=== PATIENT | male | born 1935 | race Caucasian/White ===

== ENCOUNTER 2016-12-21 19:21 | Inpatient (IN) | payer MEDICAID, OTHER ==
[~2016-12-21] VITALS: Ht 182.9 cm; Wt 77.1 kg
--- NOTE | 2016-12-21 19:25 | NUR ---
81Y M BIB [facility] FROM [facility] DUE TO FAILURE TO THRIVE FOR DAYS NOW. NO DISTRESS NOTED. PT WITH LT SIDED WEAKNESS, HX OF CVA. ST HR 130'S. AFEBRILE. SEE V/S. ERMD AWARE OF PT'S CONDITION.
[2016-12-21 19:27] VITALS: BP 158/78
[2016-12-21] MEDS ORDERED: NACL 0.9% 1,000 ML IV ONE (19:45)
[2016-12-21] MEDS ORDERED: PROSCAR5 M1 PO (19:58)
[2016-12-21] MEDS ORDERED: ADVAIR DISKUS 21 DSK IH (19:58)
[2016-12-21] MEDS ORDERED: ULTRAM50 MG PO (19:58)
[2016-12-21] MEDS ORDERED: ASPIRIN81 M1 PO (19:58)
[2016-12-21] MEDS ORDERED: PROVENTIL2.5 MG/3 M INH (19:58)
[2016-12-21] MEDS ORDERED: TYLENOL325 M2 PO (19:58)
[2016-12-21] MEDS ORDERED: DEKAS PLUS SOF1 EACH PO (19:58)
[2016-12-21] MEDS ORDERED: ARICEPT10 MG PO (19:58)
[2016-12-21] MEDS ORDERED: LIPITOR20 MG PO (19:58)
[2016-12-21] MEDS ORDERED: ARTIFICIAL TEAR15 ML OP (19:58)
[2016-12-21] MEDS ORDERED: RESOURCE PO (19:59)
[2016-12-21] MEDS ORDERED: LEVOFLOXACIN 500 MG/D5W PREMIX 100 ML IV ONE (20:40)
[2016-12-21] MEDS ORDERED: PIPERACILLIN/TAZOBACTAM 3.375 GM in DEXTROSE 5% 50 ML IV ONE (20:40)
[2016-12-21] MEDS ORDERED: NACL 0.9% 2,250 ML IV ONE (20:40)
[2016-12-21] MEDS ORDERED: PIPERACILLIN/TAZOBACTAM 3.375 GM VIAL IV ONE (20:50)
[2016-12-21] MEDS ORDERED: INSULIN HUMAN REGULAR 100 UNITS/ML 10 ML VIAL IVP ONE (21:05)
--- NOTE | 2016-12-21 21:42 | NUR ---
Patient will be admitted to care of DR RITCHIE . Admited to TELEMETRY. Will go to room 122B. Belongings list completed. Report to CHIRAG ESTRADA.
--- NOTE | 2016-12-21 21:45 | NUR ---
Admitted from , [facility]R. with chief complaint of GENERALIZED WEAKNESS, LOSS OF APPETITE & FAILURE TO THRIVE. AN 81 YO/MALE. ALERT AWAKE ORIENTED X1. UNABLE TO SPEAK CLEARLY BUT ABLE TO FOLLOW SIMPLE COMMANDS. INITIAL ASSESSMENT DONE. NO S/S OF RESPIRATORY DISTRESS OR SOB NOTED. ON O2 @ 2L/MIN VIA NASAL CANULA. NO C/O PAIN OR ANY DISCOMFORT AT THIS TIME. SKIN IS INTACT CLEAN AND DRY AND WARM TO TOUCH. PLAN OF CARE REVIEWED TO PT BUT UNABLE TO COMPREHEND. oriented to call light, bed, phone,television, bathroom, smoking policy, visiting hours, procedures, ID bracelet on. Belongings list checked. CALL LIGHT WITHIN REACH. WILL CONTINUE TO MONITOR.
[2016-12-21] MEDS ORDERED: DOCUSATE SODIUM 100 MG GELCAP PO PRN (22:00)
[2016-12-21] MEDS ORDERED: ACETAMINOPHEN 325 MG TAB PO PRN ×2 (22:00→22:10)
[2016-12-21] MEDS ORDERED: ONDANSETRON 4 MG/2 ML VIAL IVP PRN (22:00)
[2016-12-21] MEDS ORDERED: MORPHINE SULFATE 2 MG/ML SYR IVP PRN (22:00)
[2016-12-21] MEDS ORDERED: traMADol 50 MG TAB PO PRN (22:10)
[2016-12-21] MEDS: NACL 0.9% 1,000 ML IV SCH (23:31)
--- NOTE | 2016-12-21 23:45 | NUR ---
WE HAVE A ORDER FOR SPUTUM COLLECTION , BUT UNABLE AT THIS TIME, PT IS ASLEEP AND RN TOLD THAT HE DOES NOT FALLOW ORDER, PT IS ALOC
[2016-12-22] VITALS: BP 123/82
--- NOTE | 2016-12-22 00:30 | NUR ---
PT IS SLEEPING RIGHT NOW BUT EASILY AROUSABLE. NO S/S OF ANY DISCOMFORT AT THIS TIME. ALL NEEDS ARE ATTENDED. CALL LIGHT WITHIN REACH. WILL CONTINUE TO MONITOR.
--- NOTE | 2016-12-22 02:22 | NUR ---
1929 SPUTUM CUP GIVEN TO PATIENT. PT UNDERSTANDS TO GIVE SAMPLE BUT COULD NOT GIVE A SAMPLE AT THIS TIME.
[2016-12-22 04:00] VITALS: BP 119/84
[2016-12-22] MEDS ORDERED: PIPERACILLIN/TAZOBACTAM 3.375 GM VIAL IV ONE (04:06)
[2016-12-22] MEDS: PIPER/TAZO 3.375GM/D5W PREMIX 50 ML IV SCH ×3 (04:31→20:34)
[2016-12-22] MEDS: NACL 0.9% 1,000 ML IV SCH (05:30)
--- NOTE | 2016-12-22 06:00 | NUR ---
AM CARE RENDERED. BED LINEN CHANGED. INSTRUCTED PT TO REPOSITION. KEPT CLEAN AND DRY. CALL LIGHT WITHIN REACH. WILL CONTINUE TO MONITOR.
[2016-12-22] MEDS: BLOOD GLUCOSE MONITORING 1 DEV DEV FS SCH ×4 (06:16→21:21)
[2016-12-22] MEDS: INSULIN LISPRO SLIDING SCALE 100 UNITS/ML VIAL SUBQ PRN ×4 (06:17→21:23)
--- NOTE | 2016-12-22 07:17 | NUR ---
PT HAS NO S/S OF ANY DISCOMFORT. PLAN OF CARE ENDORSED TO BENY MCELROY AT BEDSIDE FOR CONTINUITY OF CARE.
--- NOTE | 2016-12-22 07:30 | NUR ---
RECEIVED PT RESTING COMFORTABLY IN BED, AWAKE AND ALERT, ABLE TO FOLLOW COMMANDS AND GIVE ONE WORD RESPONSES; NO C/O PAIN OR SOB AT THIS TIME, NO S/S DISTRESS. RESPIRATIONS EVEN AND UNLABORED, O2@92-93% ON ROOM AIR, PT PERSISTS TO REMOVE O2 VIA NC, PER HAMMERER RN. ROUTINE/PLAN OF CARE DISCUSSED AND REVIEWED, PT VERBALIZES UNDERSTANDING AND COMPLIANCE. IVF INFUSING WELL TO LEFT HAND, SITE ASYMPTOMATIC. REPOSITIONING PER PROTOCOL. SAFETY PRECAUTIONS OBSERVED AND MAINTAINED. ENCOURAGED PT TO CALL FOR ASSISTANCE NEEDED.
--- NOTE | 2016-12-22 07:51 | NUR ---
PATIENT HAS BEEN SCREENED AND CATEGORIZED HIGH NUTRITION RISK. PATIENT WILL BE SEEN WITHIN 1-2 DAYS OF ADMISSION. 12/22/16-12/23/[address]
[2016-12-22 08:00] VITALS: BP 144/79
--- NOTE | 2016-12-22 08:25 | NUR ---
ADVAIR 100/50 INHALER NOT AVAILABLE PHARMACY CALLED [facility] "O" AWARE WAISTLINE JOINER LOCKSTITCH TO ADMINISTER WHEN AVAILABLE
[2016-12-22] MEDS: FINASTERIDE 5 MG TAB PO SCH (08:29)
[2016-12-22] MEDS: ASPIRIN 81 MG TAB.CHEW PO SCH (08:30)
--- NOTE | 2016-12-22 08:30 | NUR ---
VS NOTE, MD AWARE OF BP, LOW POTASSIUM LEVEL, AND NEED FOR DIET ORDERS; NO ORDERS RECEIVED AT THIS TIME, TO JHONNYAL PT. ADMINISTERED ROUTINE MEDS ORDERED WITH EDUCATION, PT TOLERATED WELL. ASSISTED WITH AM CARE AND ADLs. WILL CONTINUE TO MONITOR.
[2016-12-22] MEDS: ALBUTEROL 0.083% 2.5 MG/3 ML NEBU INH PRN ×3 (08:42→19:20)
--- NOTE | 2016-12-22 08:43 | NUR ---
AWAKE RESPONSIVE TO FUNERAL ARRANGEMENT DIRECTOR PATIENT ASSESSMENT DONE SLIGHTLY LABORED RR 24 SATURATION 93% ON SUPPLEMENTAL OXYGEN AT 2 LPM VIA NC REVIEWED CXR DATED 12/21/2016 HHN PRN THERAPY GIVEN AT THIS TIME
[2016-12-22] MEDS ORDERED: POLYVINYL ALCOHOL 1.4% OP 15 ML SOL OP SCH (09:00)
[2016-12-22] MEDS ORDERED: FUROSEMIDE 40 MG/4 ML VIAL IVP SCH (09:00)
[2016-12-22] MEDS: POLYVINYL ALCOHOL 1.4% OP 15 ML SOL OP SCH ×2 (09:18→20:34)
[2016-12-22] MEDS: FLUTICASONE 100 MCG /SALMETEROL 50 MCG DISK IH SCH ×2 (09:29→19:20)
--- NOTE | 2016-12-22 10:30 | NUR ---
FAMILY MEMBERS AT BEDSIDE, DISCUSSED PT CONDITION AND PLAN OF CARE. CONDITION STABLE AT THIS TIME.
--- NOTE | 2016-12-22 10:39 | NUR ---
CM NOTE INITIAL REVIEW FAXED TO [facility] / FAX# [phone], ATTN: KORIN #[phone]
[2016-12-22 12:00] VITALS: BP 135/88
--- NOTE | 2016-12-22 12:21 | NUR ---
12/22/16 RD INITIAL ASSESSMENT COMPLETED PLEASE REFER TO NUTRITION ASSESSMENT UNDER CARE ACTIVITY FOR ESTIMATED NUTRITIONAL NEEDS. RD RECOMMENDATIONS: 1. RECOMMEND OBTAINING SWALLOW EVALUATION 2. IF/WHEN PT CLEARED FOR PO INTAKE CONSIDER BEGIN PO DIET WITH CCHO 60 GM, 2 GM SODIUM WITH TEXTURE MODIFICATION NEEDED PER SWALLOW EVALUATION RECOMMENDATION 3. RD WILL F/U 2-3 DAYS; HIGH RISK. VINCE SAHA RD
--- NOTE | 2016-12-22 13:00 | NUR ---
VSS. ZOSYN INFUSING WELL AT THIS TIME.
--- NOTE | 2016-12-22 14:30 | NUR ---
AWAKE AND ALERT HEALTH ASSISTANT UNABLE TO COLLECT SPUTUM PATIENT UNABLE TO PRODUCE SPONTANEOUS EXPECTORATION PATIENT REFUSES SUCTIONING VIA NASOTRACHEAL OR ORAL SPOUSE AND SON AT BEDSIDE
[2016-12-22 16:00] VITALS: BP 122/73
--- NOTE | 2016-12-22 16:00 | NUR ---
VSS. PT RESTING COMFORTABLY IN BED.
--- NOTE | 2016-12-22 16:59 | NUR ---
* ST NOTE * Bedside Dysphagia and Oral Mechanism exams completed at bedside with Nursing present. See evaluation report for further details. Pt tolerating 1/2 alternating PO trials of regular solid saltine crackers w/out s/s of aspiration, but spitting out second bolus secondary and refusing to attempt futher trials with saltine crackers. Pt also exhibiting minimal residue in oral cavity after PO intake of regular solids. Pt then tolerating 2/3 alternating PO trials of successive sips of thin liquid apple juice via a straw w/out s/s of aspiration but coughing after PO intake of last trial of successive sips of thin liquid apple juice via a straw. Pt demonstrating impulsivity during self-feeding, thus clinician suggesting PO intake of thin liquids via a cup as opposed to a straw at this time. Pt tolerating 5/6 alternating PO trials of Puree applesauce 3-5 CCs at a time via a teaspoon w/out s/s of aspiration. Pt then tolerating 3/4 alternating PO trials of thin liquid water via a cup w/out s/s of aspiration, but pt presenting with delayed residual cough after PO intake of thin liquid water via a cup. Thus, it is recommended pt be taken off NPO status and begin PO intake of Puree textures with Honey-thickened liquids for all meals with close supervision during PO intake by caregivers/staff to assure strict aspiration precautions are in place. Pt also requires assistance with feeding secondary to impulsivity during self-feeding. Lastly, it is recommended pt receive skilled [facility] services to further assess least restrictive PO diet consistency as well as to further address swallow function, with pt and caregivers/Nursing agreeable with clinician's recommendations. Pt and caregiver/Nursing education completed regarding results of evaluation; benefits of participating in skilled [facility] services; POC; and prognosis for improvement; with pt and caregiver/Nursing agreeable with clinician's recommendations. Recommend: - PO diet consistency of Puree textures with Honey-thickened liquids for all meals - CLOSE supervision during PO intake to assure STRICT aspiration precautions are in place secondary to pt's impulsivity during self-feeding - Pt requires assistance with feeding for all meals ST to follow up x1 in next 1-2 days to further assess pt's least restrictive PO diet consistency. G8996 NOMS Level 3 Time In/Out: 16:00 - 16:45
[2016-12-22] MEDS ORDERED: DEXTROSE 50% 50 ML SYR IVP PRN (18:10)
[2016-12-22] MEDS ORDERED: INSULIN LISPRO SLIDING SCALE 100 UNITS/ML VIAL SUBQ PRN (18:10)
[2016-12-22] MEDS ORDERED: POTASSIUM CHLORIDE 20% 40 MEQ/15 ML UDC PO SCH (18:30)
--- NOTE | 2016-12-22 18:30 | NUR ---
PT REFUSED DINNER TRAY. POTASSIUM ADMINISTERED ORDERED WITH EDUCATION, PT TOLERATED WELL. ASPIRATION PRECAUTIONS MAINTAINED.
--- NOTE | 2016-12-22 19:20 | NUR ---
CONDITION REMAINS STABLE, ENDORSED PLAN OF CARE TO SUPERVISOR STAGE CARPENTRY RN.
--- NOTE | 2016-12-22 19:20 | NUR ---
RECEIVED REPORT FROM DAY SHIFT NURSE, PT IS AWAKE AND ALERT, HAS NO COMPLAIN OF PAIN. ON NASAL CANNULA AT 2LPM, HAS NO S/S OF RESPIRATORY DISTRESS/DISCOMFORT NOTED. IV IS PATENT AND INTACT. SKIN IS INTACT. PLAN OF CARE DISCUSSED, REENFORCEMENT NEEDED. SAFETY MEASURES CHECKED, CALL LIGHT WITHIN REACH. WILL CONTINUE TO MONITOR.
--- NOTE | 2016-12-22 19:21 | NUR ---
RECEIVED REPORT FROM DAY SHIFT NURSE. PT IS AWAKE AND ALERT, FLACC-0. ON NASAL CANNULA AT 2LPM, HAS NO S/S OF RESPIRATORY DISTRESS/DISCOMFORT NOTED. IV SITE IS PATENT AND INTACT. SKIN IS INTACT. PLAN OF CARE DISCUSSED, REENFORCEMENT NEEDED. SAFETY MEASURES CHECKED, CALL LIGHT WITHIN REACH. WILL CONTINUE TO MONITOR.
[2016-12-22 20:00] VITALS: BP 132/88
[2016-12-22] MEDS: DONEPEZIL 10 MG TAB PO SCH (20:35)
[2016-12-22] MEDS: ATORVASTATIN 20 MG TAB PO SCH (20:35)
[2016-12-22] MEDS ORDERED: BLOOD GLUCOSE MONITORING 1 DEV DEV FS SCH (21:00)
[2016-12-22] MEDS: LEVOFLOXACIN 500 MG/D5W PREMIX 100 ML IV SCH (21:33)
--- NOTE | 2016-12-22 21:36 | NUR ---
DUE MEDS GIVEN, PT TOLERATED WELL. BLOOD SUGAR CHECKED, BSL= 341, 8 UNITS OF INSULIN GIVEN.
[2016-12-23] VITALS: BP 149/101
--- NOTE | 2016-12-23 | NUR ---
V/S CHECKED, FLACC 0. ON NASAL CANNULA, HAS NO S/S OF RESPIRATORY DISTRESS/DISCOMFORT NOTED.
--- NOTE | 2016-12-23 02:53 | NUR ---
PT SLEEPING AT THIS TIME. NOT IN DISTRESS. CALL LIGHT WITHIN REACH.
[2016-12-23 04:00] VITALS: BP 151/94
--- NOTE | 2016-12-23 04:26 | NUR ---
V/S CHECKED ANS STABLE. HAS NO COMPLAIN OF PAIN. NO S/S OF RESPIRATORY DISTRESS/DISCOMFORT NOTED. REPOSITIONED PT.
[2016-12-23] MEDS: PIPER/TAZO 3.375GM/D5W PREMIX 50 ML IV SCH ×3 (05:01→21:10)
[2016-12-23] MEDS: BLOOD GLUCOSE MONITORING 1 DEV DEV FS SCH ×4 (06:05→21:35)
[2016-12-23] MEDS: INSULIN LISPRO SLIDING SCALE 100 UNITS/ML VIAL SUBQ PRN ×4 (06:07→21:34)
--- NOTE | 2016-12-23 06:22 | NUR ---
BLOOD SUGAR CHECKED, BSL= 269, 6 UNITS OF INSULIN WAS GIVEN.
[2016-12-23] MEDS ORDERED: ALBUTEROL SULFATE/IPRATROPIU 3 ML SOL IH PRN (06:55)
--- NOTE | 2016-12-23 07:30 | NUR ---
ENDORSED REPORT TO DAY SHIFT NURSE FOR CONTINUITY OF CARE. PT IS IN STABLE CONDITION.
--- NOTE | 2016-12-23 07:31 | NUR ---
RECEIVED SBAR REPORT FROM NIGHT NURSE AT PT BEDSIDE. PT SLEEPING, AWAKENS TO LIGHT STIMULI. PT ALERT TO NAME AND PLACE. DENIES DISCOMFORT. NO S/S OF RESPIRATORY DISTRESS. ON O2 3L NC. IV SITE PATENT AND INTACT. CALL LIGHT WITHIN REACH. WILL CONTINUE TO MONITOR.
[2016-12-23 08:00] VITALS: BP 143/99
[2016-12-23] MEDS ORDERED: FUROSEMIDE 40 MG/4 ML VIAL IVP SCH (08:00)
[2016-12-23] MEDS: FLUTICASONE 100 MCG /SALMETEROL 50 MCG DISK IH SCH ×2 (08:37→19:44)
[2016-12-23] MEDS: ALBUTEROL SULFATE/IPRATROPIU 3 ML SOL IH SCH ×3 (08:37→19:41)
[2016-12-23] MEDS ORDERED: NON-FORMULARY ITEM (Multivit with Min #53/FA/K/Q10 (Dekas Plus Softgel) 1 EACH) PO SCH (09:00)
[2016-12-23] MEDS ORDERED: NUTRITIONAL SUPPLEMENT PO SCH (09:00)
[2016-12-23] MEDS: ASPIRIN 81 MG TAB.CHEW PO SCH (09:01)
[2016-12-23] MEDS: LACTOBACILLUS RHAMNOSUS GG 1 EACH CAP PO SCH (09:01)
[2016-12-23] MEDS: FINASTERIDE 5 MG TAB PO SCH (09:01)
[2016-12-23] MEDS: POLYVINYL ALCOHOL 1.4% OP 15 ML SOL OP SCH ×2 (09:02→21:30)
[2016-12-23] MEDS: MULTIVITAMIN/MINERALS 1 TAB PO SCH (09:02)
[2016-12-23] MEDS: INSULIN DETEMIR 100 UNITS/ML 10 ML VIAL SUBQ SCH (09:05)
--- NOTE | 2016-12-23 09:30 | NUR ---
ASSISTED PT IN CHANGING OF POSITIONS. LINENS CHANGED. NO S/S OF ACUTE DISTRESS, FAMILY AT BEDSIDE.
[2016-12-23 12:00] VITALS: BP 112/65
--- NOTE | 2016-12-23 12:12 | NUR ---
FAXED CONCURRENT REVIEW TO [facility] [phone] PHONE KORIN [phone]
--- NOTE | 2016-12-23 12:20 | NUR ---
ASSISTED PT IN CHANGING OF POSITIONS. LINENS CHANGED. NO S/S OF ACUTE DISTRESS. WILL CONTINUE TO MONITOR.
--- NOTE | 2016-12-23 15:30 | NUR ---
PATIENT RESTING IN BED. ON O2 3L NC. SATURATING 90%, RT MADE AWARE. NO S/S OF ACUTE DISTRESS. WILL CONTINUE TO MONITOR.
[2016-12-23 16:00] VITALS: BP 139/72
--- NOTE | 2016-12-23 16:57 | NUR ---
* ST D/C NOTE * Pt seen at bedside. Pt tolerating 2/2 PO trials of thin liquid apple juice via a cup w/out s/s of aspiration but exhibiting labial leakage in both trials. Pt then tolerating 0/2 alternating PO trials of thin liquid apple juice via a straw, exhibiting coughing immediately after PO intake of thin liquids from a straw. Pt consistently refusing PO intake of regular or mechanical soft solids at this time despite multiple attempts as well as maximal education and cueing provided by clinician. Pt education completed regarding safe swallow compensatory strategies pt could employ to aid with safe PO intake, with pt verbalizing understanding but requiring minimal verbal, tactile & visual cueing to return demonstration. Pt and caregiver/Nursing education completed regarding results of therapeutic feeding trials during ST treatment, as well as regarding recommendations upon pt's D/C from skilled [facility] services, with pt and caregiver/Nursing agreeable with clinician's recommendations. Recommend: - D/C previous diet consistency of puree textures with honey-thick liquids - Diet upgrade - PO diet consistency of Puree textures with [place]-thick liquids for all meals - CLOSE supervision during PO intake by caregivers/staff to assure STRICT aspiration precautions are in place - D/C skilled [facility] M[facility] services at this time. No further ST follow up recommended at this time. G8997 CJ G8998 CJ NOMS Level 3 Time In/Out: 16:20 - 16:50
--- NOTE | 2016-12-23 17:30 | NUR ---
PATIENT SLEEPING. NO S/S OF RESPIRATORY DISTRESS. EASILY AWAKENS. IV SITE PATENT AND INTACT.
--- NOTE | 2016-12-23 19:20 | NUR ---
RECEIVED REPORT FROM NAVI DURÁN AT BEDSIDE. INITIAL ASSESSMENT COMPLETED. PT MUMBLES. PT BED BOUND. PT HAS LEFT HAND G 20 IV. PT'S SKIN IS INTACT. PT ON O2 4L NC; SATURATION 92%. NO S/S OF SHORTNESS OF BREATH OR DISTRESS. SAFETY/FALL MEASURES IN PLACE. WILL CONTINUE TO MONITOR PT.
--- NOTE | 2016-12-23 19:25 | NUR ---
SBAR REPORT GIVEN TO NAVI RONDON AT PT BEDSIDE. NO S/S OF ACUTE DISTRESS.
--- NOTE | 2016-12-23 19:40 | NUR ---
RT AT BEDSIDE. WILL CONTINUE TO MONITOR PT.
--- NOTE | 2016-12-23 19:43 | NUR ---
FOUND PT ON 4 L NC SATTING 89% NOTIFIED NAVI RONDON. HHN GIVEN. NO DISTRESS NOTED OR SOB. WILL KEEP MONITORING.
[2016-12-23 20:00] VITALS: BP 129/77
--- NOTE | 2016-12-23 20:00 | NUR ---
PT ON 02 4L NC; SATURATION 91 [address] DR. SOOD AWARE; STATED THAT SATURATION 88-91% IS OK. WILL CONTINUE TO MONITOR PT.
--- NOTE | 2016-12-23 20:01 | NUR ---
OT IS UNABLE TO PERFORM HIS INHALER.
--- NOTE | 2016-12-23 20:01 | NUR ---
PT IS NOW ON SIMPLE MASK 7 L SATTING 91% WILL KEEP MONITORING.
--- NOTE | 2016-12-23 20:10 | NUR ---
RT PLACED PT ON OXYGEN MASK 7 L; PT SATURATION IS 94%. WILL CONTINUE TO MONITOR PT.
[2016-12-23] MEDS: DONEPEZIL 10 MG TAB PO SCH (21:30)
[2016-12-23] MEDS: ATORVASTATIN 20 MG TAB PO SCH (21:31)
--- NOTE | 2016-12-23 21:40 | NUR ---
PT TOLERATED 21LL MEDS WELL. PO CRUSHED AND GIVEN. PT TURNED/REPOSITIONED, WILL COTNTINUE TO MONITOR PT.
--- NOTE | 2016-12-23 22:00 | NUR ---
PT TURNED/REPOSITIONED WITH WARD SUPERVISOR ANTOINETTE. PT TOLERATED IT WELL. WILL CONTINUE TO MONITOR PT.
[2016-12-23] MEDS: LEVOFLOXACIN 500 MG/D5W PREMIX 100 ML IV SCH (22:20)
--- NOTE | 2016-12-23 22:56 | NUR ---
CHECKED ON PT. PT IS ASLEEP SAT 93% HR 104. WILL KEEP MONITORING.
--- NOTE | 2016-12-23 23:35 | NUR ---
PT PULLED OUT IV. NEW IV STARTED ON LEFT HAND 20 G; ASYMPTOMATIC, PATENT AND INTACT. PT TOLERATED IT WELL. WILL CONTINUE TO MONITOR PT.
[2016-12-24] VITALS: BP 135/78
--- NOTE | 2016-12-24 00:57 | NUR ---
PT REPOSITIONED WITH HELP OF JOSEPH CURRY. PT TOLERATED IT WELL. PT SATURATION 95%. WILL CONTINUE TO MONITOR PT. Addendum: 12/24/16 at 0239 by Michlele Read RN 0000 IS THE TIMING OF THIS INTERVENTION.
[2016-12-24] MEDS: ALBUTEROL SULFATE/IPRATROPIU 3 ML SOL IH SCH ×3 (01:21→13:24)
--- NOTE | 2016-12-24 02:00 | NUR ---
PT TURNED/REPOSITIONED WITH CLIP LOADING MACHINE ADJUSTER ANTOINETTE. PT TOLERATED IT WELL. WILL CONTINUE TO MONITOR PT.
[2016-12-24 04:00] VITALS: BP 141/78
--- NOTE | 2016-12-24 04:00 | NUR ---
PT TURNED/REPOSITIONED WITH HELP OF JOSEPH CURRY. PT TOLERATED IT WELL. WILL CONTINUE TO MONITOR PT.
[2016-12-24] MEDS: PIPER/TAZO 3.375GM/D5W PREMIX 50 ML IV SCH ×3 (04:08→20:49)
--- NOTE | 2016-12-24 04:10 | NUR ---
0500 ZOSYN INFUSING AT THIS TIME. PT STABLE; PT SATURATION IS 95% ON 02 MASK AT 7 L. WILL CONTINUE TO MONITOR PT.
--- NOTE | 2016-12-24 06:00 | NUR ---
PT TURNED/REPOSITIONED EVERY TWO HOURS THROUGHOUT THE SHIFT. PT STABLE WILL CONTINUE TO MONITOR PT.
[2016-12-24] MEDS: INSULIN LISPRO SLIDING SCALE 100 UNITS/ML VIAL SUBQ PRN ×4 (06:18→21:05)
[2016-12-24] MEDS: BLOOD GLUCOSE MONITORING 1 DEV DEV FS SCH ×4 (06:19→20:59)
--- NOTE | 2016-12-24 06:38 | NUR ---
RT AT BEDSIDE. PT STABLE, WILL CONTINUE TO MONITOR PT.
[2016-12-24] MEDS: FLUTICASONE 100 MCG /SALMETEROL 50 MCG DISK IH SCH (06:43)
--- NOTE | 2016-12-24 06:47 | NUR ---
CHANGE PT TO 40 VENTURI POST HHN CONT POX IN PLACE SPO2 93 PT UNABLE TO TAKE ADVAIR AT THIS TIME
--- NOTE | 2016-12-24 07:10 | NUR ---
ENDORSED PLAN OF CARE TO NAVI MONTOYA. PT IN STABLE CONDITION.
--- NOTE | 2016-12-24 07:11 | NUR ---
RECEIVED PT FROM NAVI RONDON ASLEEP BUT EASILY AROUSABLE TO NAME, NON VERBAL, WITH IV ACCESS AT RIGHT HAND 20G ON SALINE LOCK PATENT AND INTACT. WITH O2 VIA VENTURI MASK 40% AT 12LPM, SPO2 AT 93%. SKIN IS INTACT. SAFETY PRECAUTIONS ENFORCED. CALL LIGHT WITHIN REACH, WILL CONTINUE TO MONITOR.
[2016-12-24 08:00] VITALS: BP 136/91
[2016-12-24] MEDS: FINASTERIDE 5 MG TAB PO SCH (08:50)
[2016-12-24] MEDS: MULTIVITAMIN/MINERALS 1 TAB PO SCH (08:50)
[2016-12-24] MEDS: ASPIRIN 81 MG TAB.CHEW PO SCH (08:50)
[2016-12-24] MEDS: LACTOBACILLUS RHAMNOSUS GG 1 EACH CAP PO SCH (08:51)
[2016-12-24] MEDS: POLYVINYL ALCOHOL 1.4% OP 15 ML SOL OP SCH ×2 (08:51→20:50)
[2016-12-24] MEDS: INSULIN DETEMIR 100 UNITS/ML 10 ML VIAL SUBQ SCH (08:54)
--- NOTE | 2016-12-24 09:09 | NUR ---
DUE MEDS GIVEN, PT TOLERATED WELL. ALL NEEDS MET AT THIS TIME, WILL CONTINUE TO MONITOR.
--- NOTE | 2016-12-24 09:10 | NUR ---
PT REPOSITIONED TO SIDE.
--- NOTE | 2016-12-24 09:12 | NUR ---
NOTIFIED DR SOOD OF BLOOD SUGAR 340 MG/DL
--- NOTE | 2016-12-24 11:18 | NUR ---
SPONGE BATH GIVEN TOGETHER WITH MIRROR INSPECTOR LUIS CARLOS, REPOSITIONED TO SIDE. KEPT CLEAN AND DRY
[2016-12-24 12:00] VITALS: BP 144/72
--- NOTE | 2016-12-24 13:16 | NUR ---
PT REPOSITIONED TO SIDE. BREATHING SLIGHTLY LABORED, WITH RATE OF [address] SOOD AWARE
--- NOTE | 2016-12-24 13:30 | NUR ---
RELATIVES AT BEDSIDE. PT KEPT CLEAN AND DRY. WILL CONTINUE TO MONITOR.
--- NOTE | 2016-12-24 14:01 | NUR ---
12/24/16 RD FOLLOW UP COMPLETED PLEASE REFER TO NUTRITION PROGRESS NOTE UNDER CARE ACTIVITY FOR ESTIMATED NUTRITION NEEDS. RD RECOMMENDATIONS: 1. RECOMMEND ADDING NECTAR THICKENER PER ST RECOMMENDATION TO CURRENT DIET OF CCHO 60 GM PUREE. 2. ENCOURAGE INCREASED PO INTAKE. --NOTE PT WITH POOR PO INTAKE PT IS REFUSING TO EAT PER RN AND CURRENTLY MEETING 10% OF OF PT ESTIMATED PROTEIN AND 11% OF PT ESTIMATED PROTEIN NEEDS WITH AN AVG PO INTAKE OF 10%. 3. RD WILL PROVIDE DIET HEALTHSHAKES TID WITH MEALS FOR AN ADDITIONAL 600 KCAL AND 21 GM OF PROTEIN. 4. RD WILL F/U 2-3 DAYS; HIGH RISK. MELANY ANDUJAR, RD
--- NOTE | 2016-12-24 14:09 | NUR ---
PT NOW ON O2 3LPM VIA NC, SPO2 AT 91%
--- NOTE | 2016-12-24 15:21 | NUR ---
PT SLEEPING BUT EASILY AROUSABLE, REPOSITIONED TO SIDE. PERINEAL CARE PROVIDED, KEPT CLEAN AND DRY. CALL LIGHT WITHIN REACH, WILL CONTINUE TO MONITOR.
[2016-12-24 16:00] VITALS: BP 112/71
--- NOTE | 2016-12-24 17:50 | NUR ---
PT AWAKE SITTING ON BED WATCHING TV. NO S/S OF RESPIRATORY DISTRESS, SPO2 AT 93% ON NC 3LPM O2. REPOSITIONED TO SIDE.
--- NOTE | 2016-12-24 18:35 | NUR ---
DR PATEL AT NURSES' STATION
--- NOTE | 2016-12-24 19:11 | NUR ---
ENDORSED PT TO SRIRAM RN IN STABLE CONDITION FOR CONTINUITY OF CARE
--- NOTE | 2016-12-24 19:23 | NUR ---
RECEIVED PT IN STABLE CONDITION FROM AM NURSE. ON O23L/NC . O2 SAT 95%, NO DISTRESS NOTED. ON TELE MONITOR -ST. BEDREST. AWAKE,ORIENTED X1, WITH PERIODS OF CONFUSION. HAS IV ACCESS ON THE RT WRIST . CLEAR AND PATENT. FREQUENT ROUNDS NEEDED. TURNED TO SIDES Q2HRS. PLAN OF CARE DISCUSSED . NEED REINFORCEMENT. SIDE RAILS UP X2. BED ON LOW POSITION. WILL CONTINUE TO MONITOR.
[2016-12-24 20:00] VITALS: BP 127/76
[2016-12-24] MEDS: LEVOFLOXACIN 500 MG/D5W PREMIX 100 ML IV SCH (20:49)
[2016-12-24] MEDS: ATORVASTATIN 20 MG TAB PO SCH (20:50)
[2016-12-24] MEDS: DONEPEZIL 10 MG TAB PO SCH (20:50)
--- NOTE | 2016-12-24 20:55 | NUR ---
ABLE TO TAKE PO MEDS WITH SOME THICK LIQUIDS. WILL CONTINUE TO MONITOR.
[2016-12-24] MEDS ORDERED: INSULIN DETEMIR 100 UNITS/ML 10 ML VIAL SUBQ SCH (21:00)
--- NOTE | 2016-12-24 22:00 | NUR ---
REPOSITIONED FOR COMFORT. INSTRUCTED NOT TO REMOVE O2 CANULA. WILL CONTINUE TO MONITOR.
[2016-12-25 00:45] VITALS: BP 123/82
[2016-12-25] MEDS: ALBUTEROL SULFATE/IPRATROPIU 3 ML SOL IH SCH ×4 (01:24→18:30)
--- NOTE | 2016-12-25 01:25 | NUR ---
HAD A BREATHING TREATMENT. NO ACUTE RESPIRATORY DISTRESS NOTED. WILL CONTINUE TO MONITOR.
--- NOTE | 2016-12-25 03:15 | NUR ---
PT IS ASLEEP. O2 SAT 92% WITH O2 3 L/NC. NO DISTRESS NOTED.
[2016-12-25 04:05] VITALS: BP 117/74
[2016-12-25] MEDS: PIPER/TAZO 3.375GM/D5W PREMIX 50 ML IV SCH ×2 (04:38→12:35)
--- NOTE | 2016-12-25 05:45 | NUR ---
PAGED RT FOR PT CAN'T KEEP O2 NC AT ALL TIMES EVEN TRYING TO PUT IT BACK . SAT ONLY 87-89% ON RA. THOUGH NO DISTRESS NOTED. RT CAME PUT BACK ON VENTURI MASK 50%. O2 SAT 92%-94%.
--- NOTE | 2016-12-25 05:46 | NUR ---
PLACED ON 50% VENTURI MASK-O2SAT DROPPED TO 88%. 93% ON VENTURI 50%
--- NOTE | 2016-12-25 06:15 | NUR ---
GETTING BREATHING TREATMENT AT THIS TIME. NO DISTRESS NOTED.
[2016-12-25] MEDS: BLOOD GLUCOSE MONITORING 1 DEV DEV FS SCH ×4 (06:41→21:01)
--- NOTE | 2016-12-25 06:41 | NUR ---
BLOOD SUGAR WAS CHECKED THIS AM RESULT 252. INSULIN COVERAGE GIVEN .
[2016-12-25] MEDS: INSULIN LISPRO SLIDING SCALE 100 UNITS/ML VIAL SUBQ PRN ×4 (06:42→21:05)
--- NOTE | 2016-12-25 07:05 | NUR ---
O2 SAT ON VENTURI MASK 94%. ENDORSED PT IN STABLE CONDITION TO AM NURSE.
--- NOTE | 2016-12-25 07:16 | NUR ---
RECEIVED PT AWAKE LYING ON BED, AAOX2 AROUSABLE BY VOICE, WITH O2 VIA VENTURI MASK 50% SPO2 AT 93% ON SEMI FOWLERS POSITION. DISCUSSED PLAN OF CARE, REINFORCEMENT NEEDED. SKIN IS INTACT. WITH IV ACCESS ON RIGHT HAND G 22 PATENT AND INTACT. BED AT LOWEST POSITION WITH 3 SIDE RAILS UP. CALL LIGHT WITHIN REACH, WILL CONTINUE TO MONITOR.
[2016-12-25 08:00] VITALS: BP 123/92
--- NOTE | 2016-12-25 08:17 | NUR ---
PT REPOSITIONED TO SIDE, SPONGE BATH DONE BY JOSEPH. CALL LIGHT WITHIN REACH, WILL CONTINUE TO MONITOR.
[2016-12-25] MEDS: LACTOBACILLUS RHAMNOSUS GG 1 EACH CAP PO SCH (08:36)
[2016-12-25] MEDS: FINASTERIDE 5 MG TAB PO SCH (08:36)
[2016-12-25] MEDS: ASPIRIN 81 MG TAB.CHEW PO SCH (08:36)
[2016-12-25] MEDS: MULTIVITAMIN/MINERALS 1 TAB PO SCH (08:36)
[2016-12-25] MEDS: POLYVINYL ALCOHOL 1.4% OP 15 ML SOL OP SCH ×2 (08:37→21:16)
--- NOTE | 2016-12-25 08:48 | NUR ---
DUE MEDS GIVEN, PT TOLERATED WELL. REMAINED SITTING UPRIGHT ON BED. CALL LIGHT WITHIN REACH, WILL CONTINUE TO MONITOR.
[2016-12-25] MEDS: INSULIN DETEMIR 100 UNITS/ML 10 ML VIAL SUBQ SCH (08:49)
--- NOTE | 2016-12-25 10:48 | NUR ---
PT ASLEEP, STIL ON VENTURI MASK 15LPM SPO2 91%. NO RESPIRATORY DISTRESS NOTED. REPOSITIONED TO THE SIDE. CALL LIGHT WITHIN REACH, WILL CONTINUE TO MONITOR.
[2016-12-25 12:00] VITALS: BP 130/70
--- NOTE | 2016-12-25 12:38 | NUR ---
LUNCH SERVED, PT HAS POOR APPETITE. ASPIRATION PRECAUTION STRICTLY ENFORCED. KEPT CLEAN AND DRY. WILL CONTINUE TO MONITOR.
--- NOTE | 2016-12-25 12:51 | NUR ---
PT REPOSITIONED TO SIDE
--- NOTE | 2016-12-25 13:02 | NUR ---
PLACED PT ON 3LNC
--- NOTE | 2016-12-25 14:59 | NUR ---
PT KEPT CLEAN AND DRY, PERINEAL CARE DONE. REPOSITIONED TO SIDE. WILL CONTINUE TO MONITOR.
[2016-12-25 16:00] VITALS: BP 123/70
--- NOTE | 2016-12-25 16:35 | NUR ---
REQUESTED RT TO PROVIDE HUMIDIFIER FOR O2. PT ON O2 3LPM VIA NC. SPO2 AT 90%
--- NOTE | 2016-12-25 16:58 | NUR ---
PT REPOSITIONED TO SIDE. ALL NEEDS ATTENDED. KEPT CLEAN AND DRY. WILL CONTINUE TO MONITOR.
--- NOTE | 2016-12-25 17:24 | NUR ---
PT AWAKE WITH RELATIVES AT BEDSIDE. WILL CONTINUE TO MONITOR.
--- NOTE | 2016-12-25 19:26 | NUR ---
ENDORSED PT TO SRIRAM RN IN STABLE CONDITION FOR CONTINUITY OF CARE
--- NOTE | 2016-12-25 19:30 | NUR ---
RECEIVED PT IN STABLE CONDITION FROM AM NURSE. SLEEPING BUT EASILY AROUSE WHEN NAME CALLED. ON TELE MONITOR -ST. NO ACUTE DISTRESS NOTED WITH O2 3L/NC ON HUMIDIFIER. BEDBOUND. BUT NEED TO BE TURNED TO SIDE. REPOSITIONED FOR COMFORT. INCONTINENT , SKIN INTACT. WITH LT SIDE FLACCID. ABLE TO MOVE RT ARM/HAND. PLAN OF CARE DISCUSSED . NEED REINFORCEMENT. BED ON LOW POSITION, SIDE RAILS UP X2. FREQUENT ROUNDS NEEDED. WILL CONTINUE TO MONITOR.
[2016-12-25 20:00] VITALS: BP 129/75
[2016-12-25] MEDS ORDERED: MEROPENEM 500 MG VIAL IV ONE (20:39)
--- NOTE | 2016-12-25 20:40 | NUR ---
DR. PATEL CAME AND SEEN PT. WITH NEW ORDERS MADE.
[2016-12-25] MEDS: NACL 0.45% 1,000 ML IV SCH (20:45)
[2016-12-25] MEDS: MEROPENEM 500 MG in NACL 0.9% 50 ML IV SCH (20:49)
[2016-12-25] MEDS: DONEPEZIL 10 MG TAB PO SCH (20:50)
[2016-12-25] MEDS: ATORVASTATIN 20 MG TAB PO SCH (20:50)
[2016-12-25] MEDS: LEVOFLOXACIN 500 MG/D5W PREMIX 100 ML IV SCH (21:12)
--- NOTE | 2016-12-25 22:00 | NUR ---
REPOSITIONED FOR COMFORT. NO DISTRESS NOTED, WILL CONTINUE TO MONITOR.
[2016-12-26] VITALS: BP 130/53
[2016-12-26] MEDS: ALBUTEROL SULFATE/IPRATROPIU 3 ML SOL IH SCH ×4 (01:11→20:45)
--- NOTE | 2016-12-26 02:00 | NUR ---
ASLEEP. O2 SAT 03% WITH O23L/NC ON HUMIDIFIER. WILL CONTINUE TO MONITOR.
--- NOTE | 2016-12-26 04:00 | NUR ---
REPOSITIONED FOR COMFORT. INCONTINENT OF URINE. CLEANED AND KEPT DRY. NO DISTRESS NOTED.
[2016-12-26] MEDS ORDERED: MEROPENEM 500 MG VIAL IV ONE (04:10)
[2016-12-26] MEDS: MEROPENEM 500 MG in NACL 0.9% 50 ML IV SCH ×3 (04:29→21:50)
[2016-12-26 04:34] VITALS: BP 141/68
[2016-12-26] MEDS: BLOOD GLUCOSE MONITORING 1 DEV DEV FS SCH ×4 (06:12→20:38)
--- NOTE | 2016-12-26 06:12 | NUR ---
BLOOD SUGAR WAS CHECKED RESULT 172. WILL GIVE INSULIN COVERAGE ORDERED. Addendum: 12/26/16 at 0635 by Maureen Eubanks RN BLOOD SUGAR IS 171.
[2016-12-26] MEDS: INSULIN LISPRO SLIDING SCALE 100 UNITS/ML VIAL SUBQ PRN ×4 (06:14→20:41)
--- NOTE | 2016-12-26 07:15 | NUR ---
ENDORSED PT IN STABLE CONDITION TO AM NURSE.
--- NOTE | 2016-12-26 07:40 | NUR ---
RECEIVED PT SLEEPING BUT WAS ROUSABLE AND NOT ANSWERING QUESTIONS VERBALLY AT THIS TIME. SHIFT ASSESSMENT DONE AND CHARTED. PLAN OF CARE, MEDS, TREATMENTS AND SAFETY DISCUSSED WITH PT AND NO UNDERSTANDING NOTED ON PT. WILL CONTINUE TO MONITOR PT.
[2016-12-26 07:45] VITALS: BP 126/77
--- NOTE | 2016-12-26 09:30 | NUR ---
PT TOOK MEDS WELL WHEN CRUSHED AND GIVEN WITH APPLE SAUCE. PT TOOK BREAKFAST POORLY WHEN FED. AM CARE DONE WITH TOTAL ASSIST X2. PT INCONTINENT OF URINE.
[2016-12-26] MEDS: FINASTERIDE 5 MG TAB PO SCH (09:45)
[2016-12-26] MEDS: MULTIVITAMIN/MINERALS 1 TAB PO SCH (09:45)
[2016-12-26] MEDS: LACTOBACILLUS RHAMNOSUS GG 1 EACH CAP PO SCH (09:45)
[2016-12-26] MEDS: ASPIRIN 81 MG TAB.CHEW PO SCH (09:45)
[2016-12-26] MEDS: POLYVINYL ALCOHOL 1.4% OP 15 ML SOL OP SCH ×2 (09:47→20:33)
[2016-12-26] MEDS: INSULIN DETEMIR 100 UNITS/ML 10 ML VIAL SUBQ SCH (09:51)
--- NOTE | 2016-12-26 10:00 | NUR ---
DR. BEEBE NOTIFIED RE K+ 3.0.
[2016-12-26 12:00] VITALS: BP 133/91
--- NOTE | 2016-12-26 12:30 | NUR ---
PT TURNED AND REPOSITIONED Q2H WITH 2 ASSISTS. PT KEPT ON TAKING OFF O2. WILL CONTINUE TO CHECK ON PT.
--- NOTE | 2016-12-26 14:42 | NUR ---
FAXED CONCURRENT REVIEW TO [facility] [phone] PHONE KORIN [phone] [id number]
--- NOTE | 2016-12-26 15:20 | NUR ---
PT'S WAS IN VISITING WITH FAMILY MEMBERS AND WAS VERY CONCERN RE PT NOT RESPONDING TO HER VERBALLY. PPT ASKING IF PT HAD ANOTHER STROKE. DR. BEEBE NOTIFIED OF PT'S CONCERN AND MD CAME TO SEE THEM IN ROOM.
--- NOTE | 2016-12-26 15:30 | NUR ---
DR. BEEBE GAVE ORDER FOR K+ 3.0.
[2016-12-26 16:00] VITALS: BP 104/54
[2016-12-26] MEDS ORDERED: guaiFENesin 600 MG TABER PO SCH (16:00)
[2016-12-26] MEDS: NACL 0.45% 1,000 ML IV SCH (16:05)
--- NOTE | 2016-12-26 16:07 | NUR ---
SS NOTE: PER KORIN FROM [facility], THEY WILL NOT AUTHORIZE LT[facility] FOR PT. I SPOKE WITH PT'S , WERNER REGARDING PT'S D/C PLAN SINCE PT'S INSURANCE WILL NOT AUTHORIZE LTAC. SHE STATED THAT [employer] IS WORKING ON PT'S [employer] SO SHE WOULD LIKE PT TO RETURN THERE UPON DISCHARGE. SHE ALSO REQUESTED THAT I FOLLOW UP WITH THEIR BUSINESS OFFICE REGARDING PT'S MEDI-[employer]ON[employer]. I SPOKE WITH EARLINE FROM [employer]S BUSINESS OFFICE. SHE STATED THAT THEY ARE WORKING TO REDUCE PT'S MEDI-[employer] SHARE OF COST.
[2016-12-26] MEDS ORDERED: POTASSIUM CHLORIDE 40 MEQ, LIDOCAINE 1% 25 MG in NACL 0.9% 250 ML IV SCH (16:30)
--- NOTE | 2016-12-26 18:30 | NUR ---
PT TOOK DIET AND FLUIDS WELL WHEN FED. NO CHANGES NOTED IN PT'S CONDITION.
--- NOTE | 2016-12-26 19:15 | NUR ---
REPORT GIVEN TO SUDHA MCELROY AT BEDSIDE. NO CHANGES NOTED IN PT'S CONDITION.
--- NOTE | 2016-12-26 19:30 | NUR ---
RECEIVED PT AWAKE, NONVERBAL, KEEP TAKING OFF HIS NASAL CANNULA, SAT DROPS TO 90%, PUT BACK ON HUMIDIFIED O2 AT 3L AND SAT WENT UP TO 94%, VITAL SIGNS STABLE, OCCASIONAL COUGH NOTED, K-RIDER INFUSING WELL, SAFETY MEASURES IN PLACE, CALL LIGHT WITHIN REACH.
[2016-12-26 20:00] VITALS: BP 112/61
[2016-12-26] MEDS: POTASSIUM CHLORIDE 10 MEQ TABER PO SCH (20:31)
[2016-12-26] MEDS: ATORVASTATIN 20 MG TAB PO SCH (20:32)
[2016-12-26] MEDS: DONEPEZIL 10 MG TAB PO SCH (20:32)
--- NOTE | 2016-12-26 20:45 | NUR ---
DUE PO MEDS ADMINISTERED BY STUDENT RN WITH INSTRUCTOR, MEDS CRUSHED AND GIVEN WITH APPLE SAUCE, TOLERATED WELL, ALL NEEDS ANTICIPATED.
[2016-12-26] MEDS ORDERED: LEVOFLOXACIN 500 MG/D5W PREMIX 100 ML IV SCH (21:00)
--- NOTE | 2016-12-26 22:00 | NUR ---
PT INCONTINENT OF URINE, PERINEAL CARE DONE, REPOSITIONED Q2H AND OFFLOAD PRESSURE AREAS, MONITORED CLOSELY.
--- NOTE | 2016-12-26 23:50 | NUR ---
PT SLEEPING, NO SIGNS OF DISTRESS, VITAL SIGNS STABLE, IV K-RIDER INFUSING WELL, CONTINUE TO MONITOR CLOSELY.
[2016-12-27] VITALS: BP 110/60
[2016-12-27] MEDS: ALBUTEROL SULFATE/IPRATROPIU 3 ML SOL IH SCH ×3 (02:09→13:31)
[2016-12-27 04:00] VITALS: BP 116/71
[2016-12-27] MEDS: MEROPENEM 500 MG in NACL 0.9% 50 ML IV SCH ×2 (04:35→12:26)
--- NOTE | 2016-12-27 05:40 | NUR ---
PT OCCASIONALLY TAKES OFF NASAL CANNULA, SAT DROP TO 88%, PUT BACK OXYGEN AND SAT WENT UP TO 95%, ON CONTINUOUS PULSE OX, BLOOD SUGAR CHECKED WITH 133 RESULT, NO RESP DISTRESS, IVF INFUSING WELL.
[2016-12-27] MEDS: BLOOD GLUCOSE MONITORING 1 DEV DEV FS SCH ×2 (06:31→12:22)
--- NOTE | 2016-12-27 07:20 | NUR ---
PT AWAKE, NO SIGNS OF DISTRESS, REPORT GIVEN TO NAVI SCOTT FOR CONTINUITY OF CARE.
--- NOTE | 2016-12-27 07:37 | NUR ---
DECREASE FIO2 TO 2L N\C SPO2 96
--- NOTE | 2016-12-27 07:45 | NUR ---
RECEIVED PT SLEEPING IN BED COMFORTABLY AND WAS IN NO DISTRESS WITH O2@3L/NC. PT WAS EASILY ROUSABLE AND WAS IN NO PAIN/ DISCOMFORT. PT MOUTHING WORDS WHEN RESPONDING. SHIFT ASSESSMENT DONE AND CHARTED. PLAN OF CARE, MEDS, TREATMENTS, SAFETY DISCUSSED WITH PT WITH QUESTIONABLE UNDERSTANDING WILL CONTINUE TO MONITOR PT.
[2016-12-27 08:00] VITALS: BP 129/71
[2016-12-27] MEDS ORDERED: guaiFENesin 600 MG TABER PO SCH (09:00)
[2016-12-27] MEDS: POLYVINYL ALCOHOL 1.4% OP 15 ML SOL OP SCH (09:00)
[2016-12-27] MEDS: POTASSIUM CHLORIDE 10 MEQ TABER PO SCH (09:00)
[2016-12-27] MEDS: INSULIN DETEMIR 100 UNITS/ML 10 ML VIAL SUBQ SCH (09:00)
[2016-12-27] MEDS: MULTIVITAMIN/MINERALS 1 TAB PO SCH (09:00)
[2016-12-27] MEDS: ASPIRIN 81 MG TAB.CHEW PO SCH (09:00)
[2016-12-27] MEDS: LACTOBACILLUS RHAMNOSUS GG 1 EACH CAP PO SCH (09:00)
[2016-12-27] MEDS: FINASTERIDE 5 MG TAB PO SCH (09:00)
--- NOTE | 2016-12-27 09:30 | NUR ---
PT TOOK MEDS WELL WITH [facility]. REQUIRED COMPLETE ASSIST WITH MEALS. PT TURNED AND REPOSITIONED Q2H AND PRN. PT INCONTINENT OF URINE, PERICARE DONE .
--- NOTE | 2016-12-27 10:40 | NUR ---
SS NOTE: I SPOKE WITH PT'S , WERNER REGARDING POSSIBLE D/C BACK TO [facility] TODAY. SHE STATED THAT SHE IS IN AGREEMENT WITH PT RETURNING THERE. SHE ALSO STATED THAT SHE WILL FOLLOW UP WITH EARLINE AT [facility] REGARDING PT'S MEDI-ANTONIO. PER CORNELL FROM [facility] ([phone]), PT CAN GO TO ROOM 125C UNDER DR. GUIDO ANYTIME AFTER 1300. ANDRAE MCCLAIN AND DR. VAUGHN MADE AWARE.
--- NOTE | 2016-12-27 10:57 | NUR ---
FAXED CONCURRENT REVIEEW TO [facility] [phone] PHONE KORIN [phone] SPOKE WITH KORIN FROM [facility] AND INFORMED HER THAT PATIENT WILL BE GOING BACK TO [place] ON IV ANTIBIOTICS. SHE SAID THE AUTH FOR [facility] IS [id number]. SHE SAID SHE WOULD SEND THE AUTH FOR THE [facility] TO [facility].
--- NOTE | 2016-12-27 11:03 | NUR ---
CALLED [facility] . SET UP [facility] WITH O2 FOR 1:30P.Joss BLACKMAN RN CHARGE NURSE
[2016-12-27] MEDS ORDERED: LEVOFLOXACIN 5100 ML IV (11:24)
[2016-12-27] MEDS ORDERED: MEROPENEM500 MG IV (11:24)
[2016-12-27] MEDS: NACL 0.45% 1,000 ML IV SCH (12:05)
[2016-12-27] MEDS ORDERED: BLOOD GLUCOSE1 EACH MC (12:08)
[2016-12-27] MEDS ORDERED: BLOOD LANCETS1 EACH MC (12:08)
[2016-12-27] MEDS ORDERED: BLOOD GLUCOSE1 EAC3 MC (12:08)
[2016-12-27] MEDS ORDERED: GLUCOPHAGE500 MG PO (12:08)
[2016-12-27] MEDS: INSULIN LISPRO SLIDING SCALE 100 UNITS/ML VIAL SUBQ PRN (12:19)
[2016-12-27 12:28] VITALS: BP 129/71
--- NOTE | 2016-12-27 12:30 | NUR ---
PT TOOK DIET AND FLUIDS WELL. NO CHANGES NOTED IN PT'S CONDITION. DR. VAUGHN WAS IN AND LEFT ORDER FOR PT'S DISCHARGE.
--- NOTE | 2016-12-27 13:01 | NUR ---
PT'S MAGALIS NOTIFIED OF PT BEING TRANSFERRED BACK TO [facility] BY PHONE.
--- NOTE | 2016-12-27 13:13 | NUR ---
REPORT GIVEN TO MAIKEL MCELROY OF [facility] BY PHONE.
--- NOTE | 2016-12-27 14:00 | NUR ---
PT DISCHARGED TO [facility] VIA [facility] IN A STABLE CONDITION. TELE BOX REMOVED AND RETURNED TO ATTENDANT [place]. PT WAS DISCHARGED IN A STABLE CONDITION.
== END 2016-12-27 14:00 | DRG 871 ==
LOC: MED 19:21 → MTU 21:19
PROVIDERS: ADMIT Family Medicine; ATTEND Family Medicine
DX: A41.9 Sepsis, unspecified organism (principal); J69.0 Pneumonitis due to inhalation of food and vomit; G93.41 Metabolic encephalopathy; N17.0 Acute kidney failure with tubular necrosis; J96.01 Acute respiratory failure with hypoxia; E87.0 Hyperosmolality and hypernatremia; E44.0 Moderate protein-calorie malnutrition; I69.354 Hemiplegia and hemiparesis following cerebral infarction affecting left non-dominant side; R62.7 Adult failure to thrive; G30.9 Alzheimer's disease, unspecified; E87.6 Hypokalemia; E11.65 Type 2 diabetes mellitus with hyperglycemia; K76.0 Fatty (change of) liver, not elsewhere classified; E86.0 Dehydration; I10 Essential (primary) hypertension; M17.11 Unilateral primary osteoarthritis, right knee; N40.0 Benign prostatic hyperplasia without lower urinary tract symptoms; E78.5 Hyperlipidemia, unspecified; E86.1 Hypovolemia; F02.80 Dementia in other diseases classified elsewhere, unspecified severity, without behavioral disturbance, psychotic disturbance, mood disturbance, and anxiety; J44.9 Chronic obstructive pulmonary disease, unspecified; Z80.1 Family history of malignant neoplasm of trachea, bronchus and lung; Z68.23 Body mass index [BMI] 23.0-23.9, adult; Z79.899 Other long term (current) drug therapy; Z87.891 Personal history of nicotine dependence; Z74.01 Bed confinement status; Z90.49 Acquired absence of other specified parts of digestive tract; Z79.82 Long term (current) use of aspirin; Z82.49 Family history of ischemic heart disease and other diseases of the circulatory system; R74.0 Nonspecific elevation of levels of transaminase and lactic acid dehydrogenase [LDH]